=== PATIENT | female | born 1960 | race American Indian/Alaskan Native ===

== ENCOUNTER 2017-11-30 18:01 | Emergency (ER) | payer MEDICARE ==
[2017-11-30 18:11] VITALS: BP 158/88
[2017-11-30 18:42] LABS: Basophils % (Auto) 0.7 % (0.0-1.8); Eosinophils # (Auto) 0.3 K/mm3 (0.0-0.4); Eosinophils % (Auto) 3.6 % (0.0-4.3); Hematocrit 41.5 % (30.3-42.9); Hemoglobin 13.8 gm/dl (10.1-14.3); Lymphocytes # (Auto) 2.6 K/mm3 (1.2-5.4); Lymphocytes % (Auto) 35.9 % (13.4-35.0); Mean Corpuscular HGB Conc 33 % (30-34); Mean Corpuscular Hemoglobin 28 pg (28-32); Mean Corpuscular Volume 85 fl (79-97); Monocytes # (Auto) 0.4 K/mm3 (0.0-0.8); Monocytes % (Auto) 5.1 % (0.0-7.3); Platelet Count 242 K/mm3 (140-440); Red Blood Count 4.87 M/mm3 (3.65-5.03); Red Cell Distribution Width 14.1 % (13.2-15.2)
[2017-11-30 18:54] LABS: BUN/Creatinine Ratio 24; Blood Urea Nitrogen 17 mg/dL (7-17); Calcium 9.4 mg/dL (8.4-10.2); Hemolysis Index 6
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
[2017-11-30] MEDS ORDERED: DESYREL PO ONE ×2 (21:18)
[2017-11-30 21:38] LABS: Bacteria,Urine 1+ /HPF (Negative); Bilirubin,Urine NEG (Negative); Blood,Urine NEG (Negative); Color,Urine Yellow (Yellow); Mucus,Urine FEW /HPF; Urobilinogen,Urine < 2.0 mg/dL (<2.0)
[2017-11-30 21:54] LABS: Amphetamine Screen,Urine PRESUMPTIVE NEGATIVE; Benzodiazepines Screen,Urine PRESUMPTIVE NEGATIVE; Cannabinoid Screen,Urine PRESUMPTIVE NEGATIVE; Cocaine Screen,Urine PRESUMPTIVE NEGATIVE; Methadone Screen,Urine PRESUMPTIVE NEGATIVE; Opiate Screen,Urine PRESUMPTIVE NEGATIVE
[2017-11-30] MEDS ORDERED: DESYREL PO SCH (22:00)
[2017-11-30] MEDS ORDERED: PRAVACHOL PO SCH (22:00)
[2017-12-01] MEDS ORDERED: PROzac PO SCH (10:00)
[2017-12-01] MEDS ORDERED: ZESTRIL PO SCH (10:00)
== END 2017-12-01 00:23 ==
LOC: ED 18:01
DX: F41.9 Anxiety disorder, unspecified (principal); I10 Essential (primary) hypertension; E11.9 Type 2 diabetes mellitus without complications; E78.00 Pure hypercholesterolemia, unspecified; Z79.4 Long term (current) use of insulin
CPT/HCPCS: 36415; 80048; 80307; 81001; 85025; 99285; A9270; G0480; 80320

== ENCOUNTER 2020-02-04 07:50 | Emergency (ER) | payer MEDICARE ==
[2020-02-04 09:45] LABS: Basophils % (Auto) 0.7 % (0.0-1.8); Eosinophils # (Auto) 0.1 K/mm3 (0.0-0.4); Eosinophils % (Auto) 1.8 % (0.0-4.3); Hematocrit 42.2 % (30.3-42.9); Hemoglobin 14.4 gm/dl (10.1-14.3); Lymphocytes # (Auto) 1.6 K/mm3 (1.2-5.4); Lymphocytes % (Auto) 29.4 % (13.4-35.0); Mean Corpuscular HGB Conc 34 % (30-34); Mean Corpuscular Volume 85 fl (79-97); Monocytes # (Auto) 0.3 K/mm3 (0.0-0.8); Monocytes % (Auto) 5.3 % (0.0-7.3); Platelet Count 241 K/mm3 (140-440); Red Blood Count 4.95 M/mm3 (3.65-5.03); Red Cell Distribution Width 13.4 % (13.2-15.2)
[2020-02-04 10:02] LABS: BUN/Creatinine Ratio 21; Blood Urea Nitrogen 15 mg/dL (7-17); Calcium 9.7 mg/dL (8.4-10.2); Hemolysis Index 2
[2020-02-04 10:04] LABS: Alanine Aminotransferase 14 units/L (7-56); Albumin 4.5 g/dL (3.9-5)
[2020-02-04 10:05] LABS: Bilirubin,Direct < 0.2 mg/dL (0-0.2)
[2020-02-04 10:22] LABS: Bilirubin,Urine NEG (Negative); Blood,Urine NEG (Negative); Color,Urine Straw (Yellow); Hyaline Casts,Urine 2 /LPF; Mucus,Urine FEW /HPF; Protein,Urine <15 mg/dL mg/dL (Negative); Urobilinogen,Urine < 2.0 mg/dL (<2.0); WBC,Urine < 1.0 /HPF (0.0-6.0)
[2020-02-04 10:28] LABS: Amphetamine Screen,Urine PRESUMPTIVE NEGATIVE; Benzodiazepines Screen,Urine PRESUMPTIVE NEGATIVE; Cannabinoid Screen,Urine PRESUMPTIVE NEGATIVE; Cocaine Screen,Urine PRESUMPTIVE NEGATIVE; Methadone Screen,Urine PRESUMPTIVE NEGATIVE; Opiate Screen,Urine PRESUMPTIVE NEGATIVE
[2020-02-04] MEDS ORDERED: LORazepam 2 MG/ML VIAL IM ONE (10:36)
[2020-02-04] MEDS ORDERED: ZIPRASIDONE MESYLATE 20 MG VIAL IM ONE ×2 (10:36→10:43)
[2020-02-04] MEDS ORDERED: INSULIN REGULAR, HUMAN 100 UNITS/1 ML SUB-Q ONE ×2 (11:16→13:18)
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
[2020-02-04] MEDS ORDERED: ZIPRASIDONE MESYLATE 20 MG VIAL IM PRN (11:26)
[2020-02-04] MEDS ORDERED: ACETAMINOPHEN 325 MG TAB PO PRN (11:27)
[2020-02-04] MEDS ORDERED: MAGNESIUM HYDROXIDE (MOM) ORAL LIQD UDC PO PRN (11:27)
[2020-02-04] MEDS ORDERED: ALUM-MAG HYDROXIDE-SIMETHICONE 200-200-20MG/5ML ORAL LIQD 30 ML PO PRN (11:27)
[2020-02-04 12:32] VITALS: BP 179/82
[2020-02-04] MEDS ORDERED: SODIUM CHLORIDE 0.9% 1000 ML 1,000 ML IV ONE (14:35)
[2020-02-04] MEDS ORDERED: INSULIN REGULAR, HUMAN 100 UNITS/1 ML IV ONE (14:35)
== END 2020-02-04 18:06 ==
LOC: ED 07:50
DX: F99 Mental disorder, not otherwise specified (principal); E11.9 Type 2 diabetes mellitus without complications; I10 Essential (primary) hypertension; F41.9 Anxiety disorder, unspecified; F17.200 Nicotine dependence, unspecified, uncomplicated; Z90.710 Acquired absence of both cervix and uterus; Z79.4 Long term (current) use of insulin; Z79.899 Other long term (current) drug therapy
CPT/HCPCS: 36415; 80048; 80076; 80307; 81001; 82962; 85025; 96372; 96374; 99285; J2060; J3486; J7030; 80320; G0480; J1815

== ENCOUNTER 2020-02-04 13:22 | Inpatient (IN) | payer MEDICARE ==
[2020-02-04] MEDS ORDERED: LORazepam 2 MG/ML VIAL IM PRN (16:21)
[2020-02-04] MEDS ORDERED: HALOPERIDOL LACTATE 5 MG/1 ML INJ IM PRN (16:21)
[2020-02-04] MEDS ORDERED: diphenhydrAMINE 50 MG/ML VIAL IM PRN (16:21)
[2020-02-04] MEDS ORDERED: FLUOXETINE HCL 20 MG PO SCH (16:30)
[2020-02-04] MEDS ORDERED: NON-FORMULARY EACH (Fluoxetine Hcl [Prozac] 40 MG) PO SCH (16:30)
[2020-02-04] MEDS ORDERED: NON-FORMULARY EACH (Lisinopril/Hydrochlorothiazide [Zestoretic 20-12.5 Mg] 1 TAB) PO SCH (16:30)
[2020-02-04 19:28] LABS: Chol/HDL Ratio 2.41 %
[2020-02-04] MEDS: LISINOPRIL 20 MG TAB PO SCH (21:56)
[2020-02-04] MEDS: FLUoxetine 20 MG CAP PO SCH (21:57)
[2020-02-04] MEDS: PRAVASTATIN 40 MG TAB PO SCH (21:57)
[2020-02-04] MEDS: hydroCHLOROthiazide 12.5 MG CAP PO SCH (21:59)
[2020-02-04] MEDS: INSULIN NPH/REGULAR 70/30 INJ SUB-Q SCH (22:00)
[2020-02-04] MEDS ORDERED: NON-FORMULARY EACH (Simvastatin (Nf) 20 MG) PO SCH (22:00)
[2020-02-04] MEDS ORDERED: VALPROIC ACID 250 MG CAP PO SCH (22:00)
[2020-02-04] MEDS ORDERED: VALPROIC ACID 250 MG/5 ML ORAL LIQD FEEDTUBE SCH (23:00)
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
[2020-02-05] MEDS: VALPROIC ACID 250 MG CAP PO SCH ×2 (09:16→21:27)
[2020-02-05] MEDS: INSULIN NPH/REGULAR 70/30 INJ SUB-Q SCH (09:16)
[2020-02-05] MEDS: HALOPERIDOL 2 MG TAB PO SCH ×2 (09:16→21:27)
[2020-02-05] MEDS: FLUoxetine 20 MG CAP PO SCH (09:16)
[2020-02-05] MEDS: LISINOPRIL 20 MG TAB PO SCH (09:16)
[2020-02-05] MEDS ORDERED: NON-FORMULARY EACH (Sitagliptin Phosphate [Januvia] 100 MG) PO SCH (10:00)
[2020-02-05] MEDS: LINAGLIPTIN 5 MG TAB PO SCH (12:17)
[2020-02-05] MEDS: hydroCHLOROthiazide 12.5 MG CAP PO SCH (12:17)
[2020-02-05] MEDS: ASPIRIN EC 81 MG TAB PO SCH (16:19)
[2020-02-05] MEDS: PRAVASTATIN 40 MG TAB PO SCH (21:26)
[2020-02-06] MEDS: FLUoxetine 20 MG CAP PO SCH (09:10)
[2020-02-06] MEDS: INSULIN NPH/REGULAR 70/30 INJ SUB-Q SCH (09:10)
[2020-02-06] MEDS: LISINOPRIL 20 MG TAB PO SCH (09:10)
[2020-02-06] MEDS: ASPIRIN EC 81 MG TAB PO SCH (09:10)
[2020-02-06] MEDS: VALPROIC ACID 250 MG CAP PO SCH ×2 (09:10→22:34)
[2020-02-06] MEDS: HALOPERIDOL 2 MG TAB PO SCH (09:10)
[2020-02-06] MEDS: LINAGLIPTIN 5 MG TAB PO SCH (10:19)
[2020-02-06] MEDS: hydroCHLOROthiazide 12.5 MG CAP PO SCH (10:20)
--- NOTE | 2020-02-06 10:32 | Progress Note ---
Subjective Date of service: 02/06/20 Principal diagnosis: Schizoaffective Disorder Subjective Comment: During my interview with the patient this morning, she is sitting in the dayroom. She is a/o x 2. She is smiling. She appears to be responding to internal stimuli. She pauses and appears to be listening to something after each question. When asking the patient was she hearing things, she replies, "sometimes I say things to myself." She denies SI/HI. She also denies hallucinations. The patient describes her mood as "edgy." When asked the patient to describe what she meant, she said, "my mood is not quite settle." REVIEW OF SYSTEMS Constitutional: Negative for weight loss ENT: Negative for stridor Respiratory: Negative for cough or hemoptysis All other systems reviewed and are negative MENTAL STATUS EXAMINATION General Appearance: Dressed appropriately. Good eye contact Behavior: Calm and cooperative Speech: Normal rate and pace Mood: "edgy, not quite settle" Affect: Congruent with stated mood Thought Process: Responding to internal stimuli Thought Content Suicidal Ideation: Denies Homicidal Ideation: Denies Hallucinations: Auditory Delusions: None elicited Insight/Judgment: Limited Memory/Cognition: Limited Assessment and Plan Schizoaffective Disorder Treatment Plan Patient will be admitted for inpatient psychiatric evaluation, medication adjustment and close monitoring The patient's behavior, mood, sleep and appetite will be closely monitored. Patient will be enrolled in individual and group therapeutic sessions and encouraged to attend. Patient will be provided with a safe and structured environment. Patient's physical health needs will be addressed by the Hospitalist. Hospitalist Consulted Labs including CBC, CMP, Lipid profile and Hemoglobin A1C ordered Social Assessment will be completed and the Team Assistant will work with patient and family to ensure a suitable and safe disposition Medication adjustment will be made as clinically indicated Start Risperidone 0.25mg po BID D/C haldol Usual Wellness Bahai/Preservation: The patient agreed on the treatment plan, understood the risk, benefit, alternative treatment, potential consequence of no treatment, and gave informed consent. Estimated period of time patient will need to remain in the hospital: [7] Outpatient upon discharge Medications and Allergies Allergies Allergy/AdvReac Type Severity Reaction Status Date / Time No Known Allergies Allergy Unverified 12/18/13 15:16 Home Medications Medication Instructions Recorded Confirmed Last Taken Type FLUoxetine HCL [PROzac] 20 mg PO QDAY 12/18/13 02/04/20 Unknown History Simvastatin (Nf) [Zocor TAB] 20 mg PO QHS #30 tablet 12/28/14 02/04/20 Unknown Rx Insulin NPH/Regular [NovoLIN 70/30] 20 unit SUB-Q DAILY 04/24/15 02/04/20 Unknown History Lisinopril/Hydrochlorothiazide 1 tab PO DAILY 04/24/15 02/04/20 Unknown History [Zestoretic 20-12.5 mg] Omeprazole 20 mg PO DAILY 04/24/15 02/04/20 Unknown History lisinopriL [Zestril TAB] 5 mg PO DAILY 04/24/15 02/04/20 Unknown History Sitagliptin Phosphate [Januvia] 100 mg PO DAILY 11/30/17 02/04/20 Unknown History Active Meds: Active Medications Aspirin (Halfprin Ec) 81 mg PO QDAY [facility] Last Admin: 02/06/20 09:10 Dose: 81 mg Documented by: Diphenhydramine HCl (Benadryl) 50 mg IM Q6H PRN PRN Reason: agitation Fluoxetine HCl (Prozac) 40 mg PO QDAY [facility] Last Admin: 02/06/20 09:10 Dose: 40 mg Documented by: Haloperidol (Haldol) 2 mg PO BID [facility] Last Admin: 02/06/20 09:10 Dose: 2 mg Documented by: Haloperidol Lactate (Haldol) 5 mg IM ONCE PRN PRN Reason: Agitation Hydrochlorothiazide (Hctz) 12.5 mg PO QDAY [facility] Last Admin: 02/06/20 10:20 Dose: Not Given Documented by: Insulin Human Isoph/Insulin Regular (Humulin 70/30) 20 unit SUB-Q QAMDIAB [facility] Last Admin: 02/06/20 09:10 Dose: 20 unit Documented by: Linagliptin (Tradjenta) 5 mg PO QDAY [facility] Last Admin: 02/06/20 10:19 Dose: 5 mg Documented by: Lisinopril (Zestril) 20 mg PO QDAY [facility] Last Admin: 02/06/20 09:10 Dose: 20 mg Documented by: Lorazepam (Ativan) 2 mg IM Q4HR PRN PRN Reason: Agitation Pravastatin Sodium (Pravachol) 40 mg PO QHS [facility] Last Admin: 02/05/20 21:26 Dose: 40 mg Documented by: Valproic Acid (Depakene) 500 mg PO BID [facility] Last Admin: 02/06/20 09:10 Dose: 500 mg Documented by: Results - Results Labs/Vitals: Laboratory Last Values POC Glucose 135 (70-105) H 02/06/20 07:15 Triglycerides 40 mg/dL (2-149) 02/04/20 19:03 Cholesterol 215 mg/dL (50-199) H 02/04/20 19:03 LDL Cholesterol Direct 129 mg/dL (50-130) 02/04/20 19:03 HDL Cholesterol 89 mg/dL (40-59) H 02/04/20 19:03 Cholesterol/HDL Ratio 2.41 % 02/04/20 19:03 TSH 0.362 mlU/mL (0.270-4.200) 02/04/20 19:03 Valproic Acid < 2.8 ug/mL (50-100) L 02/04/20 19:03 Last Vital Signs Temp 98.3 F 02/06/20 09:31 Pulse 66 02/06/20 09:31 Resp 18 02/06/20 09:31 BP 110/50 02/06/20 09:31 Pulse Ox 97 02/06/20 09:31
[2020-02-06] MEDS: PRAVASTATIN 40 MG TAB PO SCH (22:00)
[2020-02-06] MEDS ORDERED: risperiDONE 0.25 MG TAB PO SCH (22:00)
--- NOTE | 2020-02-07 09:17 | Progress Note ---
Subjective Date of service: 02/07/20 Principal diagnosis: Schizoaffective Disorder Subjective Comment: During my interview with the patient this morning, she is sitting in the dayroom. She is a/o x 2. She is smiling inappropriately. When orienting the patient where she was, she bucked her eyes, and replied, "a psych floor? They didn't tell me I was going to be on a psychiatric floor." She says, "they told me I would be evaluated and then I could go home." The patient says she was upset earlier about the staff wanting to take her house dergoot. She says her night went "okay." She says "I tossed and turned." The patient describes her mood as "adjusting." She states, "I'm adjusting but I want to go home." She denies SI/HI. When asking about hallucinations, the patient states, "a little, slightly. It's just within me." The patient then says, "I don't think they are voices, but they are thoughts that pop up maybe a song or even tell me to say a cuss word." Reason for continued inpatient treatment: The patient appears to be responding to internal stimuli REVIEW OF SYSTEMS Constitutional: Negative for weight loss ENT: Negative for stridor Respiratory: Negative for cough or hemoptysis All other systems reviewed and are negative MENTAL STATUS EXAMINATION General Appearance: Dressed appropriately. Good eye contact Behavior: Calm and cooperative. Smiling inappropriately. Speech: Normal rate and pace Mood: "adjusting" Affect: Congruent with stated mood Thought Process: Responding to internal stimuli Thought Content Suicidal Ideation: Denies Homicidal Ideation: Denies Hallucinations: Auditory Delusions: None elicited Insight/Judgment: Limited Memory/Cognition: Limited Assessment and Plan Schizoaffective Disorder Treatment Plan Patient will be admitted for inpatient psychiatric evaluation, medication adjustment and close monitoring The patient's behavior, mood, sleep and appetite will be closely monitored. Patient will be enrolled in individual and group therapeutic sessions and encouraged to attend. Patient will be provided with a safe and structured environment. Patient's physical health needs will be addressed by the Hospitalist. Hospitalist Consulted Labs including CBC, CMP, Lipid profile and Hemoglobin A1C ordered Social Assessment will be completed and the Testboard Operator will work with patient and family to ensure a suitable and safe disposition Medication adjustment will be made as clinically indicated Increase Risperidone 0.5mg po BID Start Trazodone 50mg po qhs Usual Wellness Hindu/Preservation: The patient agreed on the treatment plan, understood the risk, benefit, alternative treatment, potential consequence of no treatment, and gave informed consent. Estimated period of time patient will need to remain in the hospital: [6] Outpatient upon discharge Medications and Allergies Allergies Allergy/AdvReac Type Severity Reaction Status Date / Time No Known Allergies Allergy Unverified 12/18/13 15:16 Home Medications Medication Instructions Recorded Confirmed Last Taken Type FLUoxetine HCL [PROzac] 20 mg PO QDAY 12/18/13 02/04/20 Unknown History Simvastatin (Nf) [Zocor TAB] 20 mg PO QHS #30 tablet 12/28/14 02/04/20 Unknown Rx Insulin NPH/Regular [NovoLIN 70/30] 20 unit SUB-Q DAILY 04/24/15 02/04/20 Unknown History Lisinopril/Hydrochlorothiazide 1 tab PO DAILY 04/24/15 02/04/20 Unknown History [Zestoretic 20-12.5 mg] Omeprazole 20 mg PO DAILY 04/24/15 02/04/20 Unknown History lisinopriL [Zestril TAB] 5 mg PO DAILY 04/24/15 02/04/20 Unknown History Sitagliptin Phosphate [Januvia] 100 mg PO DAILY 11/30/17 02/04/20 Unknown History Active Meds: Active Medications Aspirin (Halfprin Ec) 81 mg PO QDAY [facility] Last Admin: 02/06/20 09:10 Dose: 81 mg Documented by: Diphenhydramine HCl (Benadryl) 50 mg IM Q6H PRN PRN Reason: agitation Fluoxetine HCl (Prozac) 40 mg PO QDAY [facility] Last Admin: 02/06/20 09:10 Dose: 40 mg Documented by: Haloperidol Lactate (Haldol) 5 mg IM ONCE PRN PRN Reason: Agitation Hydrochlorothiazide (Hctz) 12.5 mg PO QDAY [facility] Last Admin: 02/06/20 10:20 Dose: Not Given Documented by: Insulin Human Isoph/Insulin Regular (Humulin 70/30) 20 unit SUB-Q QAMDIAB [facility] Last Admin: 02/06/20 09:10 Dose: 20 unit Documented by: Linagliptin (Tradjenta) 5 mg PO QDAY [facility] Last Admin: 02/06/20 10:19 Dose: 5 mg Documented by: Lisinopril (Zestril) 20 mg PO QDAY [facility] Last Admin: 02/06/20 09:10 Dose: 20 mg Documented by: Lorazepam (Ativan) 2 mg IM Q4HR PRN PRN Reason: Agitation Pravastatin Sodium (Pravachol) 40 mg PO QHS [facility] Last Admin: 02/06/20 22:00 Dose: 40 mg Documented by: Risperidone (Risperdal) 0.25 mg PO BID [facility] Last Admin: 02/06/20 22:34 Dose: 0.25 mg Documented by: Valproic Acid (Depakene) 500 mg PO BID [facility] Last Admin: 02/06/20 22:34 Dose: 500 mg Documented by: Results - Results Labs/Vitals: Laboratory Last Values POC Glucose 197 (70-105) H 02/07/20 08:20 Triglycerides 40 mg/dL (2-149) 02/04/20 19:03 Cholesterol 215 mg/dL (50-199) H 02/04/20 19:03 LDL Cholesterol Direct 129 mg/dL (50-130) 02/04/20 19:03 HDL Cholesterol 89 mg/dL (40-59) H 02/04/20 19:03 Cholesterol/HDL Ratio 2.41 % 02/04/20 19:03 TSH 0.362 mlU/mL (0.270-4.200) 02/04/20 19:03 Valproic Acid < 2.8 ug/mL (50-100) L 02/04/20 19:03 Last Vital Signs Temp 97.8 F 02/07/20 07:40 Pulse 80 02/07/20 07:40 Resp 18 02/07/20 07:40 BP 149/77 02/07/20 07:40 Pulse Ox 92 02/07/20 07:40
[2020-02-07] MEDS: INSULIN NPH/REGULAR 70/30 INJ SUB-Q SCH (09:31)
[2020-02-07] MEDS: FLUoxetine 20 MG CAP PO SCH (09:31)
[2020-02-07] MEDS: VALPROIC ACID 250 MG CAP PO SCH ×2 (09:31→21:27)
[2020-02-07] MEDS: ASPIRIN EC 81 MG TAB PO SCH (09:32)
[2020-02-07] MEDS: LINAGLIPTIN 5 MG TAB PO SCH (09:32)
[2020-02-07] MEDS: risperiDONE 0.25 MG TAB PO SCH ×2 (09:32→21:26)
[2020-02-07] MEDS: hydroCHLOROthiazide 12.5 MG CAP PO SCH (09:32)
[2020-02-07] MEDS: LISINOPRIL 20 MG TAB PO SCH (09:32)
[2020-02-07] MEDS: traZODone 50 MG TAB PO SCH (21:27)
[2020-02-07] MEDS: PRAVASTATIN 40 MG TAB PO SCH (21:27)
--- NOTE | 2020-02-08 09:43 | Progress Note ---
Subjective Date of service: 02/08/20 Principal diagnosis: Schizoaffective Disorder Subjective Comment: The patient's medical record was reviewed and the patient's progress was discussed with the nursing staff. During my interview with the patient this morning, she is sitting in the day room. She is smiling. She is calm and cooperative. She is pleasant. When asked about hallucinations, the patient states, "not bad, but I think I'm just talking within myself." When asking the patients what were the voices saying, she says, "I'm not real sure right now." She says her mood is "okay." She denies SI/HI. She also denies any problems with her appetite or sleep cycle. 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 REVIEW OF SYSTEMS Constitutional: Negative for weight loss ENT: Negative for stridor Respiratory: Negative for cough or hemoptysis All other systems reviewed and are negative MENTAL STATUS EXAMINATION General Appearance: Dressed appropriately. Good eye contact Behavior: Calm and cooperative. Speech: Normal rate and pace Mood: "okay" Affect: Congruent with stated mood Thought Process: Goal directed Thought Content Suicidal Ideation: Denies Homicidal Ideation: Denies Hallucinations: Auditory Delusions: None elicited Insight/Judgment: Limited Memory/Cognition: Limited Assessment and Plan Schizoaffective Disorder Treatment Plan Patient will be admitted for inpatient psychiatric evaluation, medication adjustment and close monitoring The patient's behavior, mood, sleep and appetite will be closely monitored. Patient will be enrolled in individual and group therapeutic sessions and encouraged to attend. Patient will be provided with a safe and structured environment. Patient's physical health needs will be addressed by the Hospitalist. Hospitalist Consulted Labs including CBC, CMP, Lipid profile and Hemoglobin A1C ordered Social Assessment will be completed and the Forestry Instructor will work with patient and family to ensure a suitable and safe disposition Medication adjustment will be made as clinically indicated Increase Risperidone 1mg po BID Usual Wellness Zoroastrianism/Preservation: The patient agreed on the treatment plan, understood the risk, benefit, alternative treatment, potential consequence of no treatment, and gave informed consent. Estimated period of time patient will need to remain in the hospital: [5] Outpatient upon discharge Medications and Allergies Allergies Allergy/AdvReac Type Severity Reaction Status Date / Time No Known Allergies Allergy Unverified 12/18/13 15:16 Home Medications Medication Instructions Recorded Confirmed Last Taken Type FLUoxetine HCL [PROzac] 20 mg PO QDAY 12/18/13 02/04/20 Unknown History Simvastatin (Nf) [Zocor TAB] 20 mg PO QHS #30 tablet 12/28/14 02/04/20 Unknown Rx Insulin NPH/Regular [NovoLIN 70/30] 20 unit SUB-Q DAILY 04/24/15 02/04/20 Unknown History Lisinopril/Hydrochlorothiazide 1 tab PO DAILY 04/24/15 02/04/20 Unknown History [Zestoretic 20-12.5 mg] Omeprazole 20 mg PO DAILY 04/24/15 02/04/20 Unknown History lisinopriL [Zestril TAB] 5 mg PO DAILY 04/24/15 02/04/20 Unknown History Sitagliptin Phosphate [Januvia] 100 mg PO DAILY 11/30/17 02/04/20 Unknown Hi story Active Meds: Active Medications Aspirin (Halfprin Ec) 81 mg PO QDAY [facility] Last Admin: 02/07/20 09:32 Dose: 81 mg Documented by: Diphenhydramine HCl (Benadryl) 50 mg IM Q6H PRN PRN Reason: agitation Fluoxetine HCl (Prozac) 40 mg PO QDAY [facility] Last Admin: 02/07/20 09:31 Dose: 40 mg Documented by: Haloperidol Lactate (Haldol) 5 mg IM ONCE PRN PRN Reason: Agitation Hydrochlorothiazide (Hctz) 12.5 mg PO QDAY [facility] Last Admin: 02/07/20 09:32 Dose: 12.5 mg Documented by: Insulin Human Isoph/Insulin Regular (Humulin 70/30) 20 unit SUB-Q QAMDIAB [facility] Last Admin: 02/07/20 09:31 Dose: 20 unit Documented by: Linagliptin (Tradjenta) 5 mg PO QDAY [facility] Last Admin: 02/07/20 09:32 Dose: 5 mg Documented by: Lisinopril (Zestril) 20 mg PO QDAY [facility] Last Admin: 02/07/20 09:32 Dose: 20 mg Documented by: Lorazepam (Ativan) 2 mg IM Q4HR PRN PRN Reason: Agitation Pravastatin Sodium (Pravachol) 40 mg PO QHS [facility] Last Admin: 02/07/20 21:27 Dose: 40 mg Documented by: Risperidone (Risperdal) 1 mg PO BID [facility] Trazodone HCl (Desyrel) 50 mg PO QHS [facility] Last Admin: 02/07/20 21:27 Dose: 50 mg Documented by: Valproic Acid (Depakene) 500 mg PO BID [facility] Last Admin: 02/07/20 21:27 Dose: 500 mg Documented by: Results - Results Labs/Vitals: Laboratory Last Values POC Glucose 160 (70-105) H 02/08/20 06:32 Triglycerides 40 mg/dL (2-149) 02/04/20 19:03 Cholesterol 215 mg/dL (50-199) H 02/04/20 19:03 LDL Cholesterol Direct 129 mg/dL (50-130) 02/04/20 19:03 HDL Cholesterol 89 mg/dL (40-59) H 02/04/20 19:03 Cholesterol/HDL Ratio 2.41 % 02/04/20 19:03 TSH 0.362 mlU/mL (0.270-4.200) 02/04/20 19:03 Valproic Acid < 2.8 ug/mL (50-100) L 02/04/20 19:03 Last Vital Signs Temp 97.9 F 02/07/20 19:42 Pulse 68 02/07/20 19:42 Resp 20 02/07/20 19:42 BP 150/66 02/07/20 19:42 Pulse Ox 98 02/07/20 19:42
[2020-02-08] MEDS: FLUoxetine 20 MG CAP PO SCH (11:40)
[2020-02-08] MEDS: VALPROIC ACID 250 MG CAP PO SCH ×2 (11:40→21:19)
[2020-02-08] MEDS: LINAGLIPTIN 5 MG TAB PO SCH (11:41)
[2020-02-08] MEDS: ASPIRIN EC 81 MG TAB PO SCH (11:41)
[2020-02-08] MEDS: risperiDONE 1 MG TAB PO SCH ×2 (11:41→21:20)
[2020-02-08] MEDS: hydroCHLOROthiazide 12.5 MG CAP PO SCH (11:43)
[2020-02-08] MEDS: LISINOPRIL 20 MG TAB PO SCH (11:44)
[2020-02-08] MEDS: INSULIN NPH/REGULAR 70/30 INJ SUB-Q SCH (11:53)
[2020-02-08] MEDS: PRAVASTATIN 40 MG TAB PO SCH (21:20)
[2020-02-08] MEDS: traZODone 50 MG TAB PO SCH (21:20)
--- NOTE | 2020-02-09 07:29 | Progress Note ---
Subjective Date of service: 02/09/20 Principal diagnosis: Schizoaffective Disorder Subjective Comment: Psych nurse : pt is alert and oriented x3, calm and cooperative, able to make needs known, bright affect, mood is stable, interacting appropriately with selected peers, good appetite, compliant with medication, denies si/hi, denies a/v/h, no complaints voiced, will continue to monitor for safety. Psych Progress Patient reports she is doing fine today, reports she has been passive debating no other activities, and that she is like daughters activity so far. Patient stated that she previously is to feel guilty about not succeeding in life states she feels so much better now but has been thinking about going home. She reports sleeping good that appetite has been fine and she has not had any sleep disturbances no guilty feelings no racing thoughts and has been compliant with all of her medication. she also reported liking another patient here. Reason for continued inpatient psychiatric hospitalization: check valproate levels today, will discharge if levels are normal and patient continues to exhibit stable mood within the next 24 hours. REVIEW OF SYSTEMS Constitutional: Negative for weight loss ENT: Negative for stridor Respiratory: Negative for cough or hemoptysis All other systems reviewed and are negative MENTAL STATUS EXAMINATION General Appearance and Behavior: Age appropriate, fair hygiene, wearing appropriate clothes,, good eye contact, uncooperative polite with questioning. Cooperation: Participating/engaged Psychomotor Behavior: unremarkable and within normal limits Mood: Dont know Affect and affective range: Angry Thought Process: Fluent/Logical Thought Content: Obsessions, and Paranoid Speech: Normal volume, Regular rate and rhythm Intellectual Functioning: Average Suicidal Ideation: Denies SI Homicidal Ideation: Denies HI Impulse Control: Impaired/U Insight and Judgment: Limited insight and judgment, Impaired Memory: Normal Attention: Distractible Orientation: Alert, oriented, anxious Diagnoses: Assessment and Plan - Psychiatric problem (1) Schizoaffective disorder, bipolar type Current Visit: Yes Status: Acute Check valproic levels today valproic acid 500 mg BID and Haloperidol 2mg BID Treatment Plan Patient will be admitted for inpatient psychiatric evaluation, medication adjustment and close monitoring The patient's behavior, mood, sleep and appetite will be closely monitored. Patient will be enrolled in individual and group therapeutic sessions and encouraged to attend. Patient will be provided with a safe and structured environment. Patient's physical health needs will be addressed by the Hospitalist. Hospitalist Consulted Labs including CBC, CMP, Lipid profile and Hemoglobin A1C ordered Social Assessment will be completed and the Liquid Floor And Wall Applier will work with patient and family to ensure a suitable and safe disposition Medication adjustment will be made as clinically indicated Usual Wellness Pentecostal/Preservation: - Start Trazodone 50 mg po QHS & 50 mg po QHS PRN between 10 PM & 2 AM for insomnia - Start Melatonin 5 mg po QHS to promote circadian rhythm - Start [place]-3 for brain health, reduce impulsivity, and as adjunctive treatment for mood disorder, continue upon discharge given overall benefits. - Start B1 prophylaxis with 200 mg po for 5 days The patient agreed on the treatment plan, understood the risk, benefit, alternative treatment, potential consequence of no treatment, and gave informed consent. Initial Certification This is an acknowledgement statement that NASRIN MONTENEGRO is a 59 year old F who requires inpatient psychiatric admission for treatment which could reasonably be expected to improve the patient's condition for Estimated period of time patient will need to remain in the hospital: [4] Plan for post-hospital care: [ outpt] Assessment and Plan - Patient Problems (1) Schizoaffective disorder, bipolar type Current Visit: Yes Status: Acute Medications and Allergies Allergies Allergy/AdvReac Type Severity Reaction Status Date / Time No Known Allergies Allergy Unverified 12/18/13 15:16 Home Medications Medication Instructions Recorded Confirmed Last Taken Type FLUoxetine HCL [PROzac] 20 mg PO QDAY 12/18/13 02/04/20 Unknown History Simvastatin (Nf) [Zocor TAB] 20 mg PO QHS #30 tablet 12/28/14 02/04/20 Unknown Rx Insulin NPH/Regular [NovoLIN 70/30] 20 unit SUB-Q DAILY 04/24/15 02/04/20 Unknown History Lisinopril/Hydrochlorothiazide 1 tab PO DAILY 04/24/15 02/04/20 Unknown History [Zestoretic 20-12.5 mg] Omeprazole 20 mg PO DAILY 04/24/15 02/04/20 Unknown History lisinopriL [Zestril TAB] 5 mg PO DAILY 04/24/15 02/04/20 Unknown History Sitagliptin Phosphate [Januvia] 100 mg PO DAILY 11/30/17 02/04/20 Unknown History Active Meds: Active Medications Aspirin (Halfprin Ec) 81 mg PO QDAY [facility] Last Admin: 02/08/20 11:41 Dose: 81 mg Documented by: Diphenhydramine HCl (Benadryl) 50 mg IM Q6H PRN PRN Reason: agitation Fluoxetine HCl (Prozac) 40 mg PO QDAY [facility] Last Admin: 02/08/20 11:40 Dose: 40 mg Documented by: Haloperidol Lactate (Haldol) 5 mg IM ONCE PRN PRN Reason: Agitation Hydrochlorothiazide (Hctz) 12.5 mg PO QDAY [facility] Last Admin: 02/08/20 11:43 Dose: 12.5 mg Documented by: Insulin Human Isoph/Insulin Regular (Humulin 70/30) 20 unit SUB-Q QAMDIAB [facility] Last Admin: 02/08/20 11:53 Dose: 20 unit Documented by: Linagliptin (Tradjenta) 5 mg PO QDAY [facility] Last Admin: 02/08/20 11:41 Dose: 5 mg Documented by: Lisinopril (Zestril) 20 mg PO QDAY [facility] Last Admin: 02/08/20 11:44 Dose: Not Given Documented by: Lorazepam (Ativan) 2 mg IM Q4HR PRN PRN Reason: Agitation Pravastatin Sodium (Pravachol) 40 mg PO QHS [facility] Last Admin: 02/08/20 21:20 Dose: 40 mg Documented by: Risperidone (Risperdal) 1 mg PO BID [facility] Last Admin: 02/08/20 21:20 Dose: 1 mg Documented by: Trazodone HCl (Desyrel) 50 mg PO QHS [facility] Last Admin: 02/08/20 21:20 Dose: 50 mg Documented by: Valproic Acid (Depakene) 500 mg PO BID [facility] Last Admin: 02/08/20 21:19 Dose: 500 mg Documented by: Results - Results Labs/Vitals: Laboratory Last Values POC Glucose 171 (70-105) H 02/09/20 06:28 Triglycerides 40 mg/dL (2-149) 02/04/20 19:03 Cholesterol 215 mg/dL (50-199) H 02/04/20 19:03 LDL Cholesterol Direct 129 mg/dL (50-130) 02/04/20 19:03 HDL Cholesterol 89 mg/dL (40-59) H 02/04/20 19:03 Cholesterol/HDL Ratio 2.41 % 02/04/20 19:03 TSH 0.362 mlU/mL (0.270-4.200) 02/04/20 19:03 Valproic Acid < 2.8 ug/mL (50-100) L 02/04/20 19:03 Last Vital Signs Temp 97.9 F 02/07/20 19:42 Pulse 68 02/08/20 11:44 Resp 18 02/08/20 08:00 BP 98/53 02/08/20 11:44 Pulse Ox 98 02/07/20 19:42
[2020-02-09] MEDS: INSULIN NPH/REGULAR 70/30 INJ SUB-Q SCH (08:04)
[2020-02-09] MEDS: FLUoxetine 20 MG CAP PO SCH (10:33)
[2020-02-09] MEDS: LINAGLIPTIN 5 MG TAB PO SCH (10:34)
[2020-02-09] MEDS: VALPROIC ACID 250 MG CAP PO SCH ×2 (10:34→21:43)
[2020-02-09] MEDS: risperiDONE 1 MG TAB PO SCH ×2 (10:34→22:00)
[2020-02-09] MEDS: ASPIRIN EC 81 MG TAB PO SCH (10:34)
[2020-02-09] MEDS: hydroCHLOROthiazide 12.5 MG CAP PO SCH (10:35)
[2020-02-09] MEDS: LISINOPRIL 20 MG TAB PO SCH (10:35)
[2020-02-09] MEDS: PRAVASTATIN 40 MG TAB PO SCH (21:43)
[2020-02-09] MEDS: traZODone 50 MG TAB PO SCH (21:44)
[2020-02-10] MEDS: FLUoxetine 20 MG CAP PO SCH (09:31)
[2020-02-10] MEDS: risperiDONE 1 MG TAB PO SCH ×2 (09:31→12:15)
[2020-02-10] MEDS: LISINOPRIL 20 MG TAB PO SCH (09:32)
[2020-02-10] MEDS: ASPIRIN EC 81 MG TAB PO SCH (09:32)
[2020-02-10] MEDS: LINAGLIPTIN 5 MG TAB PO SCH (09:33)
[2020-02-10] MEDS: hydroCHLOROthiazide 12.5 MG CAP PO SCH (09:33)
[2020-02-10] MEDS: VALPROIC ACID 250 MG CAP PO SCH ×2 (09:34→21:44)
[2020-02-10] MEDS: INSULIN NPH/REGULAR 70/30 INJ SUB-Q SCH (09:34)
--- NOTE | 2020-02-10 09:36 | Progress Note ---
Subjective Date of service: 02/10/20 Principal diagnosis: Schizoaffective Disorder Subjective Comment: The patient's medical record was reviewed and the patient's progress was discussed with the nursing staff. During my interview with the patient this morning, she is lying down in bed. She is awake. She says her night went "good." She denies SI/HI. 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 REVIEW OF SYSTEMS Constitutional: Negative for weight loss ENT: Negative for stridor Respiratory: Negative for cough or hemoptysis All other systems reviewed and are negative MENTAL STATUS EXAMINATION General Appearance: Dressed appropriately. Good eye contact Behavior: Calm and cooperative. Speech: Normal rate and pace Mood: "okay" Affect: Congruent with stated mood Thought Process: Goal directed Thought Content Suicidal Ideation: Denies Homicidal Ideation: Denies Hallucinations: Auditory Delusions: None elicited Insight/Judgment: Limited Memory/Cognition: Limited Assessment and Plan Schizoaffective Disorder Treatment Plan Patient will be admitted for inpatient psychiatric evaluation, medication adjustment and close monitoring The patient's behavior, mood, sleep and appetite will be closely monitored. Patient will be enrolled in individual and group therapeutic sessions and encouraged to attend. Patient will be provided with a safe and structured environment. Patient's physical health needs will be addressed by the Hospitalist. Hospitalist Consulted Labs including CBC, CMP, Lipid profile and Hemoglobin A1C ordered Social Assessment will be completed and the Unit Support Representative will work with patient and family to ensure a suitable and safe disposition Medication adjustment will be made as clinically indicated Increase morning dose of Risperidone 1.25mg po qam to treat hallucinations Usual Wellness Zoroastrian/Preservation: The patient agreed on the treatment plan, understood the risk, benefit, alterna tive treatment, potential consequence of no treatment, and gave informed consent. Estimated period of time patient will need to remain in the hospital: [1] Outpatient upon discharge Medications and Allergies Allergies Allergy/AdvReac Type Severity Reaction Status Date / Time No Known Allergies Allergy Unverified 12/18/13 15:16 Home Medications Medication Instructions Recorded Confirmed Last Taken Type FLUoxetine HCL [PROzac] 20 mg PO QDAY 12/18/13 02/04/20 Unknown History Simvastatin (Nf) [Zocor TAB] 20 mg PO QHS #30 tablet 12/28/14 02/04/20 Unknown Rx Insulin NPH/Regular [NovoLIN 70/30] 20 unit SUB-Q DAILY 04/24/15 02/04/20 Unknown History Lisinopril/Hydrochlorothiazide 1 tab PO DAILY 04/24/15 02/04/20 Unknown History [Zestoretic 20-12.5 mg] Omeprazole 20 mg PO DAILY 04/24/15 02/04/20 Unknown History lisinopriL [Zestril TAB] 5 mg PO DAILY 04/24/15 02/04/20 Unknown History Sitagliptin Phosphate [Januvia] 100 mg PO DAILY 11/30/17 02/04/20 Unknown History Active Meds: Active Medications Aspirin (Halfprin Ec) 81 mg PO QDAY [facility] Last Admin: 02/09/20 10:34 Dose: 81 mg Documented by: Diphenhydramine HCl (Benadryl) 50 mg IM Q6H PRN PRN Reason: agitation Fluoxetine HCl (Prozac) 40 mg PO QDAY [facility] Last Admin: 02/09/20 10:33 Dose: 40 mg Documented by: Haloperidol Lactate (Haldol) 5 mg IM ONCE PRN PRN Reason: Agitation Hydrochlorothiazide (Hctz) 12.5 mg PO QDAY [facility] Last Admin: 02/09/20 10:35 Dose: Not Given Documented by: Insulin Human Isoph/Insulin Regular (Humulin 70/30) 20 unit SUB-Q QAMDIAB [facility] Last Admin: 02/09/20 08:04 Dose: 20 unit Documented by: Linagliptin (Tradjenta) 5 mg PO QDAY [facility] Last Admin: 02/09/20 10:34 Dose: 5 mg Documented by: Lisinopril (Zestril) 20 mg PO QDAY [facility] Last Admin: 02/09/20 10:35 Dose: Not Given Documented by: Lorazepam (Ativan) 2 mg IM Q4HR PRN PRN Reason: Agitation Pravastatin Sodium (Pravachol) 40 mg PO QHS [facility] Last Admin: 02/09/20 21:43 Dose: 40 mg Documented by: Risperidone (Risperdal) 1 mg PO BID [facility] Last Admin: 02/09/20 22:00 Dose: 1 mg Documented by: Trazodone HCl (Desyrel) 50 mg PO QHS [facility] Last Admin: 02/09/20 21:44 Dose: 50 mg Documented by: Valproic Acid (Depakene) 500 mg PO BID [facility] Last Admin: 02/09/20 21:43 Dose: 500 mg Documented by: Results - Results Labs/Vitals: Laboratory Last Values POC Glucose 186 (70-105) H 02/10/20 09:04 Triglycerides 40 mg/dL (2-149) 02/04/20 19:03 Cholesterol 215 mg/dL (50-199) H 02/04/20 19:03 LDL Cholesterol Direct 129 mg/dL (50-130) 02/04/20 19:03 HDL Cholesterol 89 mg/dL (40-59) H 02/04/20 19:03 Cholesterol/HDL Ratio 2.41 % 02/04/20 19:03 TSH 0.362 mlU/mL (0.270-4.200) 02/04/20 19:03 Valproic Acid 70.4 ug/mL (50-100) 02/09/20 12:16 Last Vital Signs Temp 97.6 F 02/09/20 07:03 Pulse 71 02/09/20 10:35 Resp 15 02/09/20 07:03 BP 109/64 02/09/20 10:42 Pulse Ox 100 02/09/20 07:03
[2020-02-10] MEDS ORDERED: risperiDONE 0.25 MG TAB PO SCH (10:00)
[2020-02-10] MEDS: risperiDONE 0.25 MG TAB PO SCH (12:16)
[2020-02-10] MEDS: traZODone 50 MG TAB PO SCH (21:44)
[2020-02-10] MEDS: PRAVASTATIN 40 MG TAB PO SCH (21:44)
[2020-02-10] MEDS ORDERED: risperiDONE 1 MG TAB PO SCH (22:00)
[2020-02-11] MEDS ORDERED: DEXTROSE 50% IN WATER (25GM) 50 ML SYRINGE IV PRN (07:35)
[2020-02-11] MEDS ORDERED: INSULIN LISPRO 100 UNIT/ML SUB-Q SCH (08:00)
[2020-02-11] MEDS ORDERED: INSULIN NPH/REGULAR 70/30 INJ SUB-Q SCH (08:00)
--- NOTE | 2020-02-11 08:24 | Discharge Summary ---
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 The patient's mood, cognition, behavior, moral support are improved and stabilized. St the time of discharge, the patient had no endangering behavior and no debilitating adverse effects. The patient agreed on potential consequences of no treatment and gave informed consent. Disposition: TO HOME OR SELFCARE Time spent for discharge: 37 Allergies/Adverse Reactions: Allergies No Known Allergies Allergy (Unverified 12/18/13 15:16) Vital Signs: Last Vital Signs Temp 97.5 F L 02/10/20 19:43 Pulse 65 02/10/20 19:43 Resp 16 02/10/20 19:43 BP 117/59 02/10/20 19:43 Pulse Ox 100 02/10/20 19:43 Last Lab: Laboratory Last Values POC Glucose 163 (70-105) H 02/11/20 05:46 Triglycerides 40 mg/dL (2-149) 02/04/20 19:03 Cholesterol 215 mg/dL (50-199) H 02/04/20 19:03 LDL Cholesterol Direct 129 mg/dL (50-130) 02/04/20 19:03 HDL Cholesterol 89 mg/dL (40-59) H 02/04/20 19:03 Cholesterol/HDL Ratio 2.41 % 02/04/20 19:03 TSH 0.362 mlU/mL (0.270-4.200) 02/04/20 19:03 Valproic Acid 70.4 ug/mL (50-100) 02/09/20 12:16 Core Measure Documentation - Palliative Care Palliative Care/ Comfort Measures: Not Applicable - Core Measures Any of the following diagnoses?: none Exam - Constitutional Vitals: Temp Pulse Resp BP Pulse Ox 97.5 F L 65 16 117/59 100 02/10/20 19:43 02/10/20 19:43 02/10/20 19:43 02/10/20 19:43 02/10/20 19:43 General appearance: Present: no acute distress, well-nourished - EENT Eyes: Present: EOM intact ENT: hearing intact, clear oral mucosa - Neck Neck: Present: supple, normal ROM - Respiratory Respiratory effort: normal Plan Activity: advance as tolerated Weight Bearing Status: Weight Bear as Tolerated Care Plan Goals: Maintain good and stable mental health Plan of Treatment: The patient should be compliant with medications, not to use drugs, and not to drink alcohol. The patient understands that if suicidal ideas, homicidal ideas or any endangering feeling arise, the patient should seek immediate assistance including, but not limited to crisis hotline, and emergency Assessment: Bipolar Disorder The patient was calm, and cooperative, denies SI/HI or hallucinations of any kind. Follow up with: PRIMARY CARE, [Primary Care Provider] - 7 Days Prescriptions: traZODone [Desyrel] 50 mg PO QHS #30 tablet Valproic Acid [Depakene] 500 mg PO BID #60 capsule Aspirin EC [Halfprin EC] 81 mg PO QDAY #30 tablet hydroCHLOROthiazide [HCTZ] 12.5 mg PO QDAY #30 capsule FLUoxetine [PROzac] 40 mg PO QDAY #60 capsule risperiDONE [RisperDAL] 1 mg PO BID #60 tablet lisinopriL [Zestril TAB] 20 mg PO QDAY #30 tablet
[2020-02-11 08:25] VITALS: BP 110/69
--- NOTE | 2020-02-11 08:32 | Progress Note ---
Hospitalist Physical - Constitutional Vitals: Temp Pulse Resp BP Pulse Ox 97.3 F L 65 18 110/69 97 02/11/20 07:12 02/11/20 07:12 02/11/20 07:12 02/11/20 07:12 02/11/20 07:12 General appearance: Present: no acute distress, well-nourished Results - Labs Labs: Laboratory Last Values POC Glucose 163 (70-105) H 02/11/20 05:46 Triglycerides 40 mg/dL (2-149) 02/04/20 19:03 Cholesterol 215 mg/dL (50-199) H 02/04/20 19:03 LDL Cholesterol Direct 129 mg/dL (50-130) 02/04/20 19:03 HDL Cholesterol 89 mg/dL (40-59) H 02/04/20 19:03 Cholesterol/HDL Ratio 2.41 % 02/04/20 19:03 TSH 0.362 mlU/mL (0.270-4.200) 02/04/20 19:03 Valproic Acid 70.4 ug/mL (50-100) 02/09/20 12:16 Duval/IV: Voiding Method Toilet Active Medications - Current Medications Current Medications: Generic Name Dose Route Start Last Admin Trade Name Freq PRN Reason Stop Dose Admin Aspirin 81 mg 02/05/20 16:00 02/10/20 09:32 Halfprin Ec PO 81 mg QDAY [facility] Administration Dextrose 50 ml 02/11/20 07:35 D50w (25gm) Syringe IV Q30MIN PRN Hypoglycemia Protocol Diphenhydramine HCl 50 mg 02/04/20 16:21 Benadryl IM Q6H PRN agitation Fluoxetine HCl 40 mg 02/04/20 19:30 02/10/20 09:31 Prozac PO 40 mg QDAY [facility] Administration Haloperidol Lactate 5 mg 02/04/20 16:21 Haldol IM ONCE PRN Agitation Hydrochlorothiazide 12.5 mg 02/04/20 19:30 02/10/20 09:33 Hctz PO 12.5 mg QDAY [facility] Administration Insulin Human Isoph/Insulin Regular 15 unit 02/11/20 08:00 Humulin 70/30 SUB-Q QAMDIAB [facility] Insulin Human Lispro 0 unit 02/11/20 08:00 Humalog SUB-Q ACHS [facility] Protocol Linagliptin 5 mg 02/05/20 10:00 02/10/20 09:33 Tradjenta PO 5 mg QDAY [facility] Administration Lisinopril 20 mg 02/04/20 19:30 02/10/20 09:32 Zestril PO 20 mg QDAY [facility] Administration Lorazepam 2 mg 02/04/20 16:21 Ativan IM Q4HR PRN Agitation Pravastatin Sodium 40 mg 02/04/20 22:00 02/10/20 21:44 Pravachol PO 40 mg QHS [facility] Administration Risperidone 1 mg 02/10/20 22:00 02/10/20 21:44 Risperdal PO 1 mg QHS [facility] Administration Risperidone 1 mg 02/10/20 10:00 02/10/20 12:15 Risperdal PO Not Given DAILY [facility] Risperidone 0.25 mg 02/10/20 10:00 02/10/20 12:16 Risperdal PO 0.25 mg DAILY [facility] Administration Trazodone HCl 50 mg 02/07/20 22:00 02/10/20 21:44 Desyrel PO 50 mg QHS [facility] Administration Valproic Acid 500 mg 02/05/20 10:00 02/10/20 21:44 Depakene PO 500 mg BID [facility] Administration Nutrition/Malnutrition Assess - Dietary Evaluation Nutrition/Malnutrition Findings: Nutrition Notes Start: 02/11/20 07:43 Freq: Status: Active Protocol: Document 02/11/20 07:43 LP (Rec: 02/11/20 07:44 LP [id number]) Nutrition Notes Need for Assessment generated from: LOS Initial or Follow up Brief Note Subjective/Other Information Screen for LOS. Pt consuming 75-100% of meals. Nutrition Intervention Revisit per MD consult or patient Sign Off request:
[2020-02-11] MEDS: VALPROIC ACID 250 MG CAP PO SCH (10:24)
[2020-02-11] MEDS: ASPIRIN EC 81 MG TAB PO SCH (10:24)
[2020-02-11] MEDS: FLUoxetine 20 MG CAP PO SCH (10:25)
[2020-02-11] MEDS: LINAGLIPTIN 5 MG TAB PO SCH (10:25)
[2020-02-11] MEDS: risperiDONE 0.25 MG TAB PO SCH (10:25)
[2020-02-11] MEDS: risperiDONE 1 MG TAB PO SCH (10:26)
[2020-02-11] MEDS: hydroCHLOROthiazide 12.5 MG CAP PO SCH (10:29)
[2020-02-11] MEDS: LISINOPRIL 20 MG TAB PO SCH (10:30)
== END 2020-02-11 11:20 | disposition home or self-care (01) | DRG 885 ==
LOC: 3A 13:22 → UNDOADMIN 13:22 → 5A 18:15
PROVIDERS: ADMIT Psychiatry & Neurology Psychiatry; ATTEND Psychiatry & Neurology Psychiatry
DX: F25.0 Schizoaffective disorder, bipolar type (principal); I10 Essential (primary) hypertension; E11.9 Type 2 diabetes mellitus without complications; E78.5 Hyperlipidemia, unspecified; Z96.652 Presence of left artificial knee joint; Z83.49 Family history of other endocrine, nutritional and metabolic diseases; Z90.49 Acquired absence of other specified parts of digestive tract
CPT/HCPCS: 36415; 80048; 80061; 80076; 80164; 80307; 80320; 81001; 82962; 84443; 85025; 96372; 96374; G0378; A9270-GY; G0480; J1815; J2060; J3486; J7030

== ENCOUNTER 2020-07-05 15:56 | Emergency (ER) | payer MEDICARE ==
--- NOTE | 2020-07-05 17:04 | Emergency Department Report ---
Blank Doc - Documentation Documentation: 60-year-old female with bipolar schizophrenia staying at a long term was invo lved in a heated argument to her day that scared some of the residents so the home gastroenterology nurse advised her to come to the emergency department to get a mental health evaluation. She states she is welcome to stay at the home just wanted to be sure that she was on the appropriate medications. Currently Ms. Stokes reports no suicidal homicidal ideation. She reports no psychosis. She is in a very good mood and cooperative no acute distress presenting here with her family member. This initial assessment/diagnostic orders/clinical plan/treatment(s) is/are subject to change based on patients health status, clinical progression and re- assessment by fellow clinical providers in the ED. Further treatment and workup at subsequent clinical providers discretion. Patient/guardian urged not to elope from the ED as their condition may be serious if not clinically assessed and managed. Initial orders include: Mental health evaluation will hold off on ordering the health labs as she is not suicidal not homicidal she is alert and oriented in good mood
[2020-07-05 18:13] LABS: Basophils % (Auto) 0.3 % (0.0-1.8); Eosinophils # (Auto) 0.1 K/mm3 (0.0-0.4); Hematocrit 36.3 % (30.3-42.9); Hemoglobin 12.7 gm/dl (10.1-14.3); Lymphocytes # (Auto) 1.8 K/mm3 (1.2-5.4); Lymphocytes % (Auto) 26.3 % (13.4-35.0); Mean Corpuscular HGB Conc 35 % (30-34); Mean Corpuscular Volume 86 fl (79-97); Monocytes # (Auto) 0.4 K/mm3 (0.0-0.8); Monocytes % (Auto) 6.1 % (0.0-7.3); Platelet Count 277 K/mm3 (140-440); Red Blood Count 4.21 M/mm3 (3.65-5.03); Red Cell Distribution Width 12.7 % (13.2-15.2)
[2020-07-05 18:37] LABS: Bilirubin,Urine NEG (Negative); Blood,Urine NEG (Negative); Color,Urine Straw (Yellow); Mucus,Urine FEW /HPF; Protein,Urine <15 mg/dL mg/dL (Negative); RBC,Urine < 1.0 /HPF (0.0-6.0); Urobilinogen,Urine < 2.0 mg/dL (<2.0)
[2020-07-05 18:51] LABS: BUN/Creatinine Ratio 29; Blood Urea Nitrogen 26 mg/dL (7-17)
[2020-07-05 18:52] LABS: Calcium 9.9 mg/dL (8.4-10.2)
[2020-07-05 19:21] LABS: Amphetamine Screen,Urine PRESUMPTIVE NEGATIVE; Benzodiazepines Screen,Urine PRESUMPTIVE NEGATIVE
[2020-07-05 19:22] LABS: Cannabinoid Screen,Urine PRESUMPTIVE NEGATIVE; Cocaine Screen,Urine PRESUMPTIVE NEGATIVE; Methadone Screen,Urine PRESUMPTIVE NEGATIVE; Opiate Screen,Urine PRESUMPTIVE NEGATIVE
--- NOTE | 2020-07-06 03:53 | Emergency Department Report ---
ED General Adult HPI - General Chief complaint: Psych Stated complaint: MENTAL HEALTH Time Seen by Provider: 07/06/20 03:40 Source: patient, RN notes reviewed, old records reviewed Mode of arrival: Ambulatory Limitations: No Limitations - History of Present Illness Initial comments: The patient was evaluated in the emergency department for symptoms described in the history of present illness. He/she was evaluated in the context of the global COVID-19 pandemic, which necessitated consideration that the patient might be at risk for infection with the virus that causes COVID-19. Institutional protocols and algorithms that pertain to the evaluation of patients at risk for COVID-19 are in a state of rapid change based on information released by regulatory bodies including the CDC and federal and state organizations. These policies and algorithms were followed during the patient's care in the emergency department. Please note that these policies, procedures and recommendations changed on a rapid basis. Patient is a pleasant 60-year-old female, with a reported history of diabetes, hypertension and high cholesterol, as well as psychiatric disease. She is sent to the emergency room from her personal detention for unclear reasons. The patient tells me that she was sent here because she got into a verbal disagreement at the personal detention, and that she "raised her voice." The patient denies physical pain, and denies hallucinations, suicidality, homicidality, access to guns, firearms, and intention to overdose. Denies all physical pain, cough, fever, loss of taste, loss of smell. She states "I do not understand why they sent me here." She says that she has no acute medical complaints at this time, and "I am ready to go home." Improves with: none Worsens with: none Associated Symptoms: denies other symptoms - Related Data Home Medications Medication Instructions Recorded Confirmed Last Taken Omeprazole 20 mg PO DAILY 04/24/15 04/06/20 Unknown Previous Rx's Medication Instructions Recorded Last Taken Type Simvastatin (Nf) [Zocor TAB] 20 mg PO QHS #30 tablet 12/28/14 Unknown Rx Aspirin EC [Halfprin EC] 81 mg PO QDAY #30 tablet 04/14/20 Unknown Rx FLUoxetine [PROzac] 40 mg PO QDAY #60 capsule 04/14/20 Unknown Rx Insulin NPH/Regular [NovoLIN 70/30] 20 unit SUB-Q DAILY #1000 units 04/14/20 Unknown Rx Lisinopril/Hydrochlorothiazide 1 tab PO DAILY 30 Days #30 04/14/20 Unknown Rx [Zestoretic 20-12.5 mg] Sitagliptin Phosphate [Januvia] 100 mg PO DAILY #30 04/14/20 Unknown Rx Valproic Acid [Depakene] 500 mg PO BID #60 capsule 04/14/20 Unknown Rx traZODone [Desyrel] 50 mg PO QHS #30 tablet 04/14/20 Unknown Rx risperiDONE [RisperDAL] 2 mg PO BID #60 tablet 04/15/20 Unknown Rx Allergies Allergy/AdvReac Type Severity Reaction Status Date / Time No Known Allergies Allergy Unverified 12/18/13 15:16 ED Review of Systems ROS: Stated complaint: MENTAL HEALTH Other details as noted in HPI Comment: All other systems reviewed and negative ED Past Medical Hx - Past Medical History Previous Medical History?: Yes Hx Hypertension: Yes Hx Congestive Heart Failure: No Hx Diabetes: Yes Hx Renal Disease: No Hx Arthritis: No Hx Seizures: No Hx Psychiatric Treatment: Yes (Schizphrenia, Depression) Hx Asthma: No Hx COPD: No Hx Dementia: No Additional medical history: Anxiety, high cholesterol - Surgical History Past Surgical History?: Yes Hx Cholecystectomy: No Hx Appendectomy: No Additional Surgical History: c section x 3, hysterectomy - Social History Smoking Status: Never Smoker Substance Use Type: None - Medications Home Medications: Home Medications Medication Instructions Recorded Confirmed Last Taken Type Simvastatin (Nf) [Zocor TAB] 20 mg PO QHS #30 tablet 12/28/14 04/06/20 Unknown Rx Omeprazole 20 mg PO DAILY 04/24/15 04/06/20 Unknown History Aspirin EC [Halfprin EC] 81 mg PO QDAY #30 tablet 04/14/20 Unknown Rx FLUoxetine [PROzac] 40 mg PO QDAY #60 capsule 04/14/20 Unknown Rx Insulin NPH/Regular [NovoLIN 70/30] 20 unit SUB-Q DAILY #1000 units 04/14/20 Unknown Rx Lisinopril/Hydrochlorothiazide 1 tab PO DAILY 30 Days #30 04/14/20 Unknown Rx [Zestoretic 20-12.5 mg] Sitagliptin Phosphate [Januvia] 100 mg PO DAILY #30 04/14/20 Unknown Rx Valproic Acid [Depakene] 500 mg PO BID #60 capsule 08/26/20 Unknown Rx traZODone [Desyrel] 50 mg PO QHS #30 tablet 04/14/20 Unknown Rx risperiDONE [RisperDAL] 2 mg PO BID #60 tablet 04/15/20 Unknown Rx ED Physical Exam - General Limitations: No Limitations General appearance: alert, in no apparent distress - Head Head exam: Present: atraumatic, normocephalic - Eye Eye exam: Present: normal appearance, PERRL, EOMI, other (Visual acuity intact to finger counting, color perception, reading at a close distance). Absent: nystagmus - ENT ENT exam: Present: normal exam, normal orophraynx, mucous membranes moist, normal external ear exam - Neck Neck exam: Present: normal inspection, full ROM. Absent: tenderness, meningismus - Respiratory Respiratory exam: Present: normal lung sounds bilaterally. Absent: respiratory distress, wheezes, rales, rhonchi, stridor, decreased breath sounds - Cardiovascular Cardiovascular Exam: Present: regular rate, normal rhythm, normal heart sounds. Absent: bradycardia, tachycardia, irregular rhythm, systolic murmur, diastolic murmur, rubs, gallop - GI/Abdominal GI/Abdominal exam: Present: soft, normal bowel sounds. Absent: distended, tenderness, guarding, rebound, rigid, pulsatile mass - Extremities Exam Extremities exam: Present: normal inspection, full ROM, other (2+ pulses noted in the bilateral upper and lower extremities. There is no palpable cord. negative Homans sign. Muscular compartments are soft. The pelvis is stable.). Absent: pedal edema - Back Exam Back exam: Present: normal inspection, full ROM. Absent: tenderness, CVA tenderness (R), CVA tenderness (L), paraspinal tenderness, vertebral tenderness - Neurological Exam Neurological exam: Present: alert, oriented X3, normal gait, other (No facial droop. Tongue midline. Extraocular movements intact bilaterally. Facial sensation intact to light touch in V1, V2, V3 distribution bilaterally. 5 and a 5 strength in 4 extremities. Sensation intact to light touch in 4 extremitie s.). Absent: motor sensory deficit - Psychiatric Psychiatric exam: Present: normal affect, normal mood. Absent: homicidal ideation, suicidal ideation - Skin Skin exam: Present: warm, dry, intact, normal color. Absent: rash ED Course Vital Signs 07/05/20 16:38 Temperature 97.6 F Pulse Rate 75 Respiratory 16 Rate Blood Pressure 134/66 [Right] O2 Sat by Pulse 97 Oximetry ED Medical Decision Making - Lab Data Result diagrams: 07/05/20 17:44 07/05/20 17:44 Vital Signs 07/05/20 16:38 Temperature 97.6 F Pulse Rate 75 Respiratory 16 Rate Blood Pressure 134/66 [Right] O2 Sat by Pulse 97 Oximetry Lab Results 07/05/20 07/05/20 07/05/20 Range/Units 17:44 17:44 17:44 WBC (4.5-11.0) K/mm3 RBC (3.65-5.03) M/mm3 Hgb (10.1-14.3) gm/dl Hct (30.3-42.9) % MCV (79-97) fl MCH (28-32) pg MCHC (30-34) % RDW (13.2-15.2) % Plt Count (140-440) K/mm3 Lymph % (Auto) (13.4-35.0) % [place] % (Auto) (0.0-7.3) % Eos % (Auto) (0.0-4.3) % Baso % (Auto) (0.0-1.8) % Lymph # (Auto) (1.2-5.4) K/mm3 [place] # (Auto) (0.0-0.8) K/mm3 Eos # (Auto) (0.0-0.4) K/mm3 Baso # (Auto) (0.0-0.1) K/mm3 Seg Neutrophils % (40.0-70.0) % Seg Neutrophils # (1.8-7.7) K/mm3 Sodium 129 L (137-145) mmol/L Potassium 3.5 L (3.6-5.0) mmol/L Chloride 88.8 L (98-107) mmol/L Carbon Dioxide 28 (22-30) mmol/L Anion Gap 16 mmol/L BUN 26 H (7-17) mg/dL Creatinine 0.9 (0.6-1.2) mg/dL Estimated GFR > 60 ml/min BUN/Creatinine Ratio 29 % Glucose 349 H (65-100) mg/dL POC Glucose (70-105) mg/dL Calcium 9.9 (8.4-10.2) mg/dL Urine Color (Yellow) Urine Turbidity (Clear) Urine pH (5.0-7.0) Ur Specific [place] (1.003-1.030) Urine Protein (Negative) mg/dL Urine Glucose (UA) (Negative) mg/dL Urine Ketones (Negative) mg/dL Urine Blood (Negative) Urine Nitrite (Negative) Urine Bilirubin (Negative) Urine Urobilinogen (<2.0) mg/dL Ur Leukocyte Esterase (Negative) Urine WBC (Auto) (0.0-6.0) /HPF Urine RBC (Auto) (0.0-6.0) /HPF U Epithel Cells (Auto) (0-13.0) /HPF Urine Mucus /HPF Salicylates < 0.3 L (2.8-20.0) mg/dL Urine Opiates Screen Urine Methadone Screen Acetaminophen < 5.0 L (10.0-30.0) ug/mL Ur Barbiturates Screen Ur Phencyclidine Scrn Ur Amphetamines Screen U Benzodiazepines Scrn Urine Cocaine Screen U Marijuana (THC) Screen Drugs of Abuse Note Plasma/Serum Alcohol (0-0.07) % 07/05/20 07/05/20 07/05/20 Range/Units 17:44 17:44 18:09 WBC 6.8 (4.5-11.0) K/mm3 RBC 4.21 (3.65-5.03) M/mm3 Hgb 12.7 (10.1-14.3) gm/dl Hct 36.3 (30.3-42.9) % MCV 86 (79-97) fl MCH 30 (28-32) pg MCHC 35 H (30-34) % RDW 12.7 L (13.2-15.2) % Plt Count 277 (140-440) K/mm3 Lymph % (Auto) 26.3 (13.4-35.0) % [place] % (Auto) 6.1 (0.0-7.3) % Eos % (Auto) 2.0 (0.0-4.3) % Baso % (Auto) 0.3 (0.0-1.8) % Lymph # (Auto) 1.8 (1.2-5.4) K/mm3 [place] # (Auto) 0.4 (0.0-0.8) K/mm3 Eos # (Auto) 0.1 (0.0-0.4) K/mm3 Baso # (Auto) 0.0 (0.0-0.1) K/mm3 Seg Neutrophils % 65.3 (40.0-70.0) % Seg Neutrophils # 4.4 (1.8-7.7) K/mm3 Sodium (137-145) mmol/L Potassium (3.6-5.0) mmol/L Chloride (98-107) mmol/L Carbon Dioxide (22-30) mmol/L Anion Gap mmol/L BUN (7-17) mg/dL Creatinine (0.6-1.2) mg/dL Estimated GFR ml/min BUN/Creatinine Ratio % Glucose (65-100) mg/dL POC Glucose (70-105) mg/dL Calcium (8.4-10.2) mg/dL Urine Color (Yellow) Urine Turbidity (Clear) Urine pH (5.0-7.0) Ur Specific [place] (1.003-1.030) Urine Protein (Negative) mg/dL Urine Glucose (UA) (Negative) mg/dL Urine Ketones (Negative) mg/dL Urine Blood (Negative) Urine Nitrite (Negative) Urine Bilirubin (Negative) Urine Urobilinogen (<2.0) mg/dL Ur Leukocyte Esterase (Negative) Urine WBC (Auto) (0.0-6.0) /HPF Urine RBC (Auto) (0.0-6.0) /HPF U Epithel Cells (Auto) (0-13.0) /HPF Urine Mucus /HPF Salicylates (2.8-20.0) mg/dL Urine Opiates Screen Presumptive negative Urine Methadone Screen Presumptive negative Acetaminophen (10.0-30.0) ug/mL Ur Barbiturates Screen Presumptive negative Ur Phencyclidine Scrn Presumptive negative Ur Amphetamines Screen Presumptive negative U Benzodiazepines Scrn Presumptive negative Urine Cocaine Screen Presumptive negative U Marijuana (THC) Screen Presumptive negative Drugs of Abuse Note Disclamer Plasma/Serum Alcohol < 0.01 (0-0.07) % 07/05/20 07/06/20 Range/Units 18:09 04:15 WBC (4.5-11.0) K/mm3 RBC (3.65-5.03) M/mm3 Hgb (10.1-14.3) gm/dl Hct (30.3-42.9) % MCV (79-97) fl MCH (28-32) pg MCHC (30-34) % RDW (13.2-15.2) % Plt Count (140-440) K/mm3 Lymph % (Auto) (13.4-35.0) % [place] % (Auto) (0.0-7.3) % Eos % (Auto) (0.0-4.3) % Baso % (Auto) (0.0-1.8) % Lymph # (Auto) (1.2-5.4) K/mm3 [place] # (Auto) (0.0-0.8) K/mm3 Eos # (Auto) (0.0-0.4) K/mm3 Baso # (Auto) (0.0-0.1) K/mm3 Seg Neutrophils % (40.0-70.0) % Seg Neutrophils # (1.8-7.7) K/mm3 Sodium (137-145) mmol/L Potassium (3.6-5.0) mmol/L Chloride (98-107) mmol/L Carbon Dioxide (22-30) mmol/L Anion Gap mmol/L BUN (7-17) mg/dL Creatinine (0.6-1.2) mg/dL Estimated GFR ml/min BUN/Creatinine Ratio % Glucose (65-100) mg/dL POC Glucose 276 H (70-105) mg/dL Calcium (8.4-10.2) mg/dL Urine Color Straw (Yellow) Urine Turbidity Clear (Clear) Urine pH 5.0 (5.0-7.0) Ur Specific [place] 1.024 (1.003-1.030) Urine Protein <15 mg/dl (Negative) mg/dL Urine Glucose (UA) >=500 (Negative) mg/dL Urine Ketones Neg (Negative) mg/dL Urine Blood Neg (Negative) Urine Nitrite Neg (Negative) Urine Bilirubin Neg (Negative) Urine Urobilinogen < 2.0 (<2.0) mg/dL Ur Leukocyte Esterase Neg (Negative) Urine WBC (Auto) 2.0 (0.0-6.0) /HPF Urine RBC (Auto) < 1.0 (0.0-6.0) /HPF U Epithel Cells (Auto) 1.0 (0-13.0) /HPF Urine Mucus Few /HPF Salicylates (2.8-20.0) mg/dL Urine Opiates Screen Urine Methadone Screen Acetaminophen (10.0-30.0) ug/mL Ur Barbiturates Screen Ur Phencyclidine Scrn Ur Amphetamines Screen U Benzodiazepines Scrn Urine Cocaine Screen U Marijuana (THC) Screen Drugs of Abuse Note Plasma/Serum Alcohol (0-0.07) % - Medical Decision Making Differential diagnosis, including but not limited to: General medical exam Assessment and plan: 60-year-old female, with no acute medical complaints, GCS of 15, alert and oriented to name, place, location, who appears lucid, and demonstrates decision-making capacity, without distracting injury, and does not appear to be in an acute incapacitating psychiatric crisis. Patient does not meet criteria for involuntary hold, confinement or 1013. Screening laboratory studies were sent prior to my personal evaluation. They are fairly unremarkable with the exception of elevated blood sugar, which is now improved. Hyponatremia is likely pseudohyponatremia, likely secondary to hyperglycemia. Patient does not appear to have an anion gap acidosis. Does not require hospitalization or medical admission at this time. Does not require emergent psychiatric evaluation at this time. She does not appear to have an emergent medical or psychiatric condition present at this time. She can follow-up with an outpatient primary care doctor, and/or psychiatrist/mental health specialist Critical care attestation.: If time is entered above; I have spent that time in minutes in the direct care of this critically ill patient, excluding procedure time. ED Disposition Clinical Impression: Hyperglycemia, General medical exam Disposition: DC-01 TO HOME OR SELFCARE Is pt being admited?: No Does the pt Need Aspirin: No Condition: Stable Additional Instructions: Patient does not appear to have an emergent medical or psychiatric condition present at this time. Patient may follow-up with her outpatient therapist or psychiatrist within the next week. Patient found to have high blood sugar while here in the emergency room. Continue current diabetic medications, and please adhere to a diabetic appropriate diet. Please follow-up with your primary care doctor within the next month. Return to the emergency room right away with new pain, worsening pain, migration of pain, projectile vomiting, change in mental status, confusion, homicidality, suicidality, overdose, or any new, worsened or different symptoms not present on the initial emergency room evaluation. Referrals: KYRIE URENA MD [Staff Physician] - 3-5 Days [facility] [Provider Group] - 3-5 Days Time of Disposition: 04:13 (Discharge back to personal detention)
[2020-07-06 04:15] VITALS: BP 119/70
== END 2020-07-06 04:40 | disposition home or self-care (01) ==
LOC: ED 15:56
DX: E11.65 Type 2 diabetes mellitus with hyperglycemia (principal); Z00.00 Encounter for general adult medical examination without abnormal findings; I10 Essential (primary) hypertension; F20.9 Schizophrenia, unspecified; F32.9 Major depressive disorder, single episode, unspecified; Z90.710 Acquired absence of both cervix and uterus; Z98.890 Other specified postprocedural states; Z79.4 Long term (current) use of insulin; Z79.899 Other long term (current) drug therapy
CPT/HCPCS: 36415; 80048; 80307; 80320; 81001; 82962; 85025; G0480